=== PATIENT | female | born 1995 | race Caucasian/White ===

== ENCOUNTER 2018-07-24 22:50 | Outpatient (CLI) | payer OTHER ==
[2018-07-25 00:13] LABS: ADD UMIC YES; UR ASCORBIC ACID 20 mg/dL (NEGATIVE); UR BACTERIA FEW /HPF (NONE SEEN); UR BILIRUBIN (Dip) NEGATIVE (NEGATIVE); UR BLOOD (Dip) NEGATIVE (NEGATIVE); UR CLARITY SLIGHTLY CLOUDY (CLEAR); UR COLOR YELLOW (YELLOW); UR GLUCOSE (Dip) NEGATIVE (NEGATIVE); UR KETONES (Dip) NEGATIVE (NEGATIVE); UR LEUKOCYTE ESTERASE (Dip) 3+ Leu/ul (NEGATIVE); UR MUCUS FEW /HPF (NONE SEEN); UR NITRITE (Dip) NEGATIVE (NEGATIVE); UR RBC 1 /HPF (0-5); UR SPECIFIC GRAVITY (Dip) 1.028 (1.003-1.030); UR SQUAMOUS EPITHELIAL CELL FEW /HPF (FEW); UR TOTAL PROTEIN (Dip) 1+ mg/dl (NEGATIVE); UR UROBILINOGEN (Dip) NEGATIVE (NEGATIVE); UR WBC 26 /HPF (0-5)
== END 2018-07-25 00:30 | disposition home or self-care (01) ==
LOC: OBT 22:50 → L-D 22:51
DX: O23.43 Unspecified infection of urinary tract in pregnancy, third trimester (principal); O62.9 Abnormality of forces of labor, unspecified; Z3A.36 36 weeks gestation of pregnancy
CPT/HCPCS: 76818; 81001; 87086

== ENCOUNTER 2018-08-14 11:37 | Inpatient (IN) | payer OTHER ==
[2018-08-14] MEDS ORDERED: LACTATED RINGER'S 1,000 ML IV (12:01)
[2018-08-14] MEDS ORDERED: OXYTOCIN 30 UNITS/LR 500 ML IV ×4 (12:11→14:00)
[2018-08-14] MEDS ORDERED: LIDOCAINE 1% (MPF) 30 ML INJ INJ (12:30)
[2018-08-14] MEDS ORDERED: BUTORPHANOL 2 MG INJ IV (12:30)
[2018-08-14] MEDS ORDERED: BUTORPHANOL 1 MG INJ IV (12:30)
[2018-08-14] MEDS ORDERED: CARBOPROST 250 MCG INJ IM ×2 (12:30→14:00)
[2018-08-14] MEDS ORDERED: METHYLERGONOVINE 0.2 MG INJ IM ×2 (12:30→14:00)
[2018-08-14] MEDS ORDERED: FENTAnyl 50 MCG/ML VIAL IV (12:30)
[2018-08-14] MEDS ORDERED: MISOPROSTOL 200 MCG TAB PR ×2 (12:30→14:00)
[2018-08-14] MEDS ORDERED: LIDOCAINE 1% (MPF) 30 ML INJ (12:43)
[2018-08-14 12:59] LABS: ADD MAN DIFF? NO
[2018-08-14 13:05] LABS: WHITE BLOOD COUNT 11.1 10^3/ul (4.8-10.8)
[2018-08-14 13:05] LABS: BASOPHILS % 0.1 % (0.0-2.0); HEMATOCRIT 33.4 % (37.0-47.0); HEMOGLOBIN 10.6 g/dl (12.0-16.0); LYMPHOCYTES # 1.1 10^3/ul (0.8-2.9); LYMPHOCYTES % 9.7 % (15.0-51.0); MEAN CORPUSCULAR HEMOGLOBIN 26.8 pg (29.0-33.0); MEAN CORPUSCULAR HGB CONC 31.7 g/dl (32.0-37.0); MEAN CORPUSCULAR VOLUME 84.3 fl (82.0-101.0); MEAN PLATELET VOLUME 10.5 fl (7.4-10.4); MONOCYTE # 0.7 10^3/ul (0.3-0.9); MONOCYTES % 6.5 % (0.0-11.0); NEUTROPHIL # 9.3 10^3/ul (1.6-7.5); NEUTROPHILS % 83.3 % (39.0-77.0); PLATELET COUNT 327 10^3/UL (140-415); RED BLOOD COUNT 3.96 10^6/ul (4.20-5.40); RED CELL DISTRIBUTION WIDTH 15.2 % (11.5-14.5)
[2018-08-14 13:36] LABS: INR 0.92; PROTIME 12.4 Sec (11.9-14.9)
[2018-08-14 13:37] LABS: PARTIAL THROMBOPLASTIN TIME 26.7 Sec (23.0-35.0)
[2018-08-14] MEDS: OXYTOCIN 30 UNITS/LR 500 ML IV ×3 (13:44→21:34)
[2018-08-14 13:54] LABS: HEPATITIS B SURFACE ANTIGEN NEGATIVE (NEGATIVE)
[2018-08-14] MEDS ORDERED: ONDANSETRON 4 MG INJ IV (14:00)
[2018-08-14] MEDS ORDERED: DIPHENHYDRAMINE 25 MG CAP PO (14:00)
[2018-08-14] MEDS ORDERED: LANOLIN 7 GM TUBE TOP (14:00)
[2018-08-14] MEDS ORDERED: HYDROCODONE/APAP (5/325) TAB PO (14:00)
[2018-08-14] MEDS ORDERED: NACL 0.9% 3 ML SYG IV (14:00)
[2018-08-14] MEDS ORDERED: ZOLPIDEM 5 MG TAB PO (14:00)
[2018-08-14] MEDS ORDERED: IBUPROFEN 600 MG TAB (14:05)
[2018-08-14] MEDS: IBUPROFEN 600 MG TAB PO ×3 (14:07→23:56)
[2018-08-14 16:59] LABS: RAPID PLASMA REAGIN NONREACTIVE (NR)
[2018-08-14] MEDS ORDERED: IBUPROFEN 600 MG TAB GTB (18:00)
[2018-08-14] MEDS: SENNA/DOCUSATE NA (8.6MG/50MG) TAB PO (21:45)
[2018-08-15] MEDS: IBUPROFEN 600 MG TAB PO ×4 (05:47→23:49)
[2018-08-15] MEDS: SENNA/DOCUSATE NA (8.6MG/50MG) TAB PO ×2 (08:06→21:26)
[2018-08-15] MEDS: WITCH HAZEL/GLYCERIN PAD PR (08:06)
[2018-08-15 08:22] LABS: HEMATOCRIT 29.6 % (37.0-47.0); HEMOGLOBIN 9.4 g/dl (12.0-16.0)
[2018-08-16] MEDS: IBUPROFEN 600 MG TAB PO ×2 (06:00→11:49)
[2018-08-16] MEDS ORDERED: LANOLOLIN HPA 1 PKT TOP (07:45)
[2018-08-16] MEDS: WITCH HAZEL/GLYCERIN PAD PR (07:48)
[2018-08-16] MEDS: LANOLOLIN HPA 1 PKT TOP (07:53)
[2018-08-16] MEDS: DIPHTH/TET/ACEL PERTUSS (ADULT) 0.5 ML VIAL IM* (09:13)
[2018-08-16] MEDS: MEASLES,MUMPS,RUBELLA VACCINE INJ SC* (09:14)
[2018-08-16] MEDS: VARICELLA VACCINE LIVE/PF 1,350 UNIT/0.5 ML ML SC* (09:14)
[2018-08-16] MEDS: SENNA/DOCUSATE NA (8.6MG/50MG) TAB PO (10:01)
== END 2018-08-16 14:14 | disposition home or self-care (01) | DRG 807 ==
LOC: OBT 11:37 → L-D 11:37 → OBT 12:02 → L-D 11:55 → PP1 15:39
PROVIDERS: Obstetrics & Gynecology
PROC: 10E0XZZ Delivery of Products of Conception, External Approach (ICD-10-PCS; principal; 2018-08-14)
PROC: 0HQ9XZZ Repair Perineum Skin, External Approach (ICD-10-PCS; 2018-08-14)
PROC: 4A1HXCZ Monitoring of Products of Conception, Cardiac Rate, External Approach (ICD-10-PCS; 2018-08-14)
DX: O70.0 First degree perineal laceration during delivery (principal); Z37.0 Single live birth; Z3A.38 38 weeks gestation of pregnancy
CPT/HCPCS: 85014; 85018; 85025; 85610; 85730; 86592; 86850; 86900; 86901; 87340; 90716

== ENCOUNTER 2019-01-26 14:04 | Emergency (ER) | payer OTHER | END 2019-01-26 17:32 | disposition home or self-care (01) | LOC: FTE 14:04 | DX: T19.2XXA Foreign body in vulva and vagina, initial encounter (principal); X58.XXXA Exposure to other specified factors, initial encounter; Y92.9 Unspecified place or not applicable | CPT/HCPCS: 99284; Z7502 ==